=== PATIENT | female | born 1940 | race Caucasian/White ===

== ENCOUNTER → 2017-09-25 | Outpatient (CLI) | payer OTHER ==
[2017-09-25 11:43] LABS: BASOPHILS # (AUTO) 0.1 X10^3/uL (0.0-0.1); BASOPHILS % (AUTO) 0.9 % (0.2-1.0); EOSINOPHILS # (AUTO) 0.1 x10^3/uL (0.0-0.2); EOSINOPHILS % (AUTO) 2.3 % (0.9-2.9); HEMATOCRIT 33.7 % (36.0-47.0); HEMOGLOBIN 11.3 g/dL (12.0-16.0); LYMPHOCYTES # (AUTO) 1.1 X10^3/uL (1.3-2.9); LYMPHOCYTES % (AUTO) 18.5 % (21.0-51.0); MEAN CORPUSCULAR HEMOGLOBIN 31.4 pg (27.0-34.0); MEAN CORPUSCULAR HGB CONC 33.5 g/dL (33.0-35.0); MEAN CORPUSCULAR VOLUME 93.6 fL (80.0-100.0); MEAN PLATELET VOLUME 8.9 fL (7.4-11.0); MONOCYTES # (AUTO) 0.3 x10^3/uL (0.3-0.8); MONOCYTES % (AUTO) 5.5 % (0.0-13.0); NEUTROPHILS # (AUTO) 4.3 x10^3/uL (2.2-4.8); NEUTROPHILS % (AUTO) 72.8 % (42.0-75.0); PLATELET COUNT 236 X10^3/uL (150.0-450.0); RED CELL DISTRIBUTION WIDTH 14.3 % (11.6-16.5)
[2017-09-25 11:54] LABS: ALANINE AMINOTRANSFERASE 56 Units/L (12-78); ALBUMIN 3.5 g/dL (3.4-5.0); ALKALINE PHOSPHATASE 80 Units/L (46-116); ASPARTATE AMINO TRANSFERASE 45 Units/L (15-37); BLOOD UREA NITROGEN 18 mg/dL (7-18); CALCIUM 8.5 mg/dL (8.5-10.1); CARBON DIOXIDE 31.4 mmol/L (21-32); CHLORIDE 101 mmol/L (98-107); CREATININE 1.07 mg/dL (0.55-1.02); SODIUM 138 mmol/L (136-145); TOTAL PROTEIN 7.4 g/dL (6.4-8.2); eGFR BLACK RACES > 60 (>60); eGFR NON BLACK RACES 53 (>60)
--- NOTE | 2017-09-25 12:29 | RAD ---
Indication: Preop for right shoulder surgery Exam: PA and lateral Comparison: Right shoulder series 09/23/2017 Findings: The heart is normal. The pulmonary vessels are normal. No consolidation or effusion is seen . There are extensive metallic fixation devices along the thoracolumbar spine which appear in good po sition. Degenerative changes are seen along the thoracic spine. There is a mildly displaced and commi nuted fracture along the right humeral head and neck region which is unchanged. Impression: Stable chest with no acute pulmonary abnormality seen. Reported By:
[2017-09-25 12:58] LABS: ERYTHROCYTE SEDIMENTATION RATE 85 MM/HOUR (0-20)
[2017-09-25 13:51] LABS: BILIRUBIN,URINE NEGATIVE (NEGATIVE); BLOOD/HEMOGLOBIN,URINE 1+ (NEGATIVE); GLUCOSE, URINE NEGATIVE (NEGATIVE); KETONES,URINE 1+ (NEGATIVE); LEUKOCYTE ESTERASE ,URINE 3+ (NEGATIVE); NITRITES,URINE NEGATIVE (NEGATIVE); PROTEIN,URINE 2+ (NEGATIVE); UROBILINOGEN,URINE 2+ (NORMAL)
--- NOTE | 2017-09-25 13:56 | CT ---
CT OF THE RIGHT SHOULDER WITHOUT CONTRAST Clinical indication: Fall with fracture. Preoperative assessment. Comparison: None. Procedure: Axial images of the right shoulder were obtained. Sagittal coronal reformats were performe d. Dose reduction techniques including Automated Exposure Control (AEC) and adjustment of mA and kV w ere utlized. Findings: Comminuted fracture primarily involving the anatomic neck of the right humerus but also ext ending to involve the greater tuberosity. There is some impaction of the distal humeral shaft into th e humeral head fracture. Small joint effusion. Clavicle and scapula are unremarkable. Glenoid is inta ct. Humeral head appears to be appropriately located within the glenohumeral fossa. Impression: Comminuted humeral head fracture as above. Reported By:
[2017-09-25 14:02] LABS: AMORPHOUS SEDIMENT,UR 1+ /HPF (NEGATIVE); APPEARANCE,URINE SLIGHTLY HAZY (CLEAR); BACTERIA,URINE 1+ /HPF (NEGATIVE); COLOR,URINE YELLOW (YELLOW); RENAL EPITHELIAL CELLS,URINE RARE /HPF (NEGATIVE); SQUAMOUS EPITHELIAL CELL,UR MANY /HPF (NEGATIVE)
[2017-09-25 14:03] LABS: MUCUS,URINE FEW /HPF (NEGATIVE)
== END ==
LOC: RAD 11:04
PROVIDERS: ATTEND Orthopaedic Surgery
DX: Z01.818 Encounter for other preprocedural examination (principal); Z01.810 Encounter for preprocedural cardiovascular examination; Z01.811 Encounter for preprocedural respiratory examination; Z11.8 Encounter for screening for other infectious and parasitic diseases; Z79.899 Other long term (current) drug therapy; Z79.01 Long term (current) use of anticoagulants; R79.82 Elevated C-reactive protein (CRP); R70.0 Elevated erythrocyte sedimentation rate; S42.291A Other displaced fracture of upper end of right humerus, initial encounter for closed fracture; X58.XXXA Exposure to other specified factors, initial encounter
CPT/HCPCS: 36415; 71046; 73200; 80053; 81001; 85025; 85610; 85652; 85730; 86140; 87640; 87641; 93005; 93010

== ENCOUNTER 2017-09-29 08:58 | Day surgery (SDC) | payer OTHER ==
[~2017-09-29 08:58] MED LIST: ANCEF 1 GM IV PREMIX* 1 GM/50 ML BAG IV ONE; D5 LR 1000 ML 1,000 ML IV ONE
[2017-09-29] MEDS ORDERED: MARCAINE 0.5% ONE (10:33)
[2017-09-29] MEDS ORDERED: ADRENALINE CHL INJ ONE (10:33)
[2017-09-29] MEDS ORDERED: BACTROBAN OINT ONE (12:04)
[2017-09-29] MEDS ORDERED: ROBINUL ONE (12:37)
[2017-09-29] MEDS ORDERED: FENTANYL INJ 100 mcg ONE ×2 (12:40→14:34)
[2017-09-29] MEDS ORDERED: ANCEF 1 GM IV PREMIX* 1 GM/50 ML BAG IV ONE (13:41)
[2017-09-29] MEDS ORDERED: NS IRRIGATION 1000 ML 1,000 ML with BACITRACIN VIAL 50,000 UNIT IR ONE ×2 (13:45)
[2017-09-29] MEDS ORDERED: NORCURON INJ 10 MG VIAL ONE (15:39)
[2017-09-29] MEDS ORDERED: XYLOCAINE 2 % (PLAIN) ONE (15:39)
[2017-09-29] MEDS ORDERED: DIPRIVAN VIAL ONE (15:39)
[2017-09-29] MEDS ORDERED: SUPRANE IN ONE (15:39)
[2017-09-29] MEDS ORDERED: VERSED ONE (15:39)
[2017-09-29] MEDS ORDERED: QUELICIN (OR ANECTINE) ONE (15:39)
[2017-09-29] MEDS ORDERED: NEOSTIGMINE INJ ONE (15:39)
[2017-09-29] MEDS: DILAUDID INJ IVP PRN ×3 (16:47→17:10)
[2017-09-29] MEDS ORDERED: ZOFRAN INJ 4 MG VIAL IVP PRN (16:47)
[2017-09-29] MEDS ORDERED: REGLAN INJ 10 MG VIAL IVP PRN (16:47)
[2017-09-29] MEDS ORDERED: PHENERGAN INJ 25 MG IVP PRN (16:47)
[2017-09-29] MEDS ORDERED: BENADRYL INJ 50 MG VIAL IVP PRN (16:47)
[2017-09-29] MEDS: PERCOCET TAB 5/325 MG PO PRN (22:24)
[2017-09-30] MEDS ORDERED: PERCOCET TAB 5/325 MG ONE ×2 (04:39→07:56)
[2017-09-30] MEDS: PERCOCET TAB 5/325 MG PO PRN ×2 (04:44→08:00)
[2017-09-30 06:52] LABS: BASOPHILS % (AUTO) 0.2 % (0.2-1.0); EOSINOPHILS % (AUTO) 0.3 % (0.9-2.9); HEMATOCRIT 28.9 % (36.0-47.0); HEMOGLOBIN 9.9 g/dL (12.0-16.0); LYMPHOCYTES # (AUTO) 0.8 X10^3/uL (1.3-2.9); LYMPHOCYTES % (AUTO) 9.3 % (21.0-51.0); MEAN CORPUSCULAR HEMOGLOBIN 31.4 pg (27.0-34.0); MEAN CORPUSCULAR HGB CONC 34.1 g/dL (33.0-35.0); MEAN PLATELET VOLUME 8.9 fL (7.4-11.0); MONOCYTES # (AUTO) 0.9 x10^3/uL (0.3-0.8); MONOCYTES % (AUTO) 10.4 % (0.0-13.0); NEUTROPHILS # (AUTO) 7.1 x10^3/uL (2.2-4.8); NEUTROPHILS % (AUTO) 79.8 % (42.0-75.0); PLATELET COUNT 257 X10^3/uL (150.0-450.0); RED BLOOD COUNT 3.14 X10^6/uL (3.5-5.4); RED CELL DISTRIBUTION WIDTH 14.6 % (11.6-16.5); WHITE BLOOD COUNT 8.9 X10^3/uL (3.6-10.0)
[2017-09-30 06:54] LABS: BLOOD UREA NITROGEN 17 mg/dL (7-18); CALCIUM 8.3 mg/dL (8.5-10.1); CARBON DIOXIDE 28.1 mmol/L (21-32); CHLORIDE 100 mmol/L (98-107); CREATININE 0.94 mg/dL (0.55-1.02); SODIUM 136 mmol/L (136-145); eGFR BLACK RACES > 60 (>60); eGFR NON BLACK RACES > 60 (>60)
[2017-09-30 08:28] VITALS: BP 140/63
--- NOTE | 2017-10-01 16:34 | OR.GENERIC ---
Post-Op Note Generic - Post-Op Note Operative Report: preoperative diagnosis-RIGHT shoulder proximal humerus fracture, three-part,, unstable,, closed, osteoporotic Postoperative diagnosis-RIGHT shoulder proximal humerus fracture, four-part, closed, unstable, osteoporotic, valgus impacted Procedure-RIGHT shoulder proximal humerus open reduction and internal fixation with plates and screws. Date of surgery-09/29/2017 Implant used-JIA proximal humerus plate locking Indication-patient is a 77-year-old female who had a fall at [place] and landed on her RIGHT shoulder. She noticed severe pain in the RIGHT should shoulder immediately after the fall. She also noticed inability to move the RIGHT upper limb due to severe pain. She went to the emergency room in [place] and x-rays were done which showed a proximal humerus fractures. She was placed in a shoulder immobilizer and asked to follow-up with orthopedic surgeon. She presented to my office with xx-rays. It showed a valgus impacted 3 part fracture. A computed tomography s was ordered and the images were discusse with the family. Natural history and treatment discussions with done with the family. Patient wanted to proceed with surgical intervention. Open reduction and internal fixation versus hemiarthroplasty versus total shoulder reverse arthroplasty was discussed with her and family. She wanted to proceed with open reduction and internal fixation. Patient had an ongoing shoulder problem even before the fall. Symptoms suggested towards a rotator cuff problem. It was brought to the notice of the patient that she might havesome stiffness as well as restricted range of motion due to this shoulder injury. He even after open reduction internal fixation she might continue to have stiffness and pain in the RIGHT shoulde shoulder. Patient as well as the family understood and also verbalized the same. The risks and benefits involved were discussed with the patient and the family. Complications including but not limited to the following were discussed.. Infection, osteomyelitis, axillary nerve injury, deltoid weakness/pparalysis, nonunion, malunion, loss of fixation, avascular necrosis, need for further procedu, stiffness, persistent pain. Patient consented for the procedure. Preoperative- patient was seen in the preoperative holding area. Limb was marked. Patient got the appropriate antibiotic. Patient got a regional upraclavicular block. Again consent was revisited. Procedure-patient was brought to the operating room. Patient was placed supine. Successful endotracheal intubation was completed after general anesthesia was done. Patient placed in about 15 of beachchair position. Patient had a abrasion on the inside aspect of the arm as well as the medial chest. This was isolated with a 10 x 30 drape. The RIGHT upper limp was prepped and draped. An Ioban was applied on the ablation on the medial side of the arm. The rest of the upper limb was again prepped with Ioban. All the gloves were changed. C-arm was brought in from the patient's head side nd AP and lateral images were obtained. A trans deltoid approach was used. An incision about 5 cm was placed on the skin starting from the tip of the acromion. Dissection carried d through the deep tissue to expose the deltoid fibers. A plane developed bet between acromion and spinal fibers. Dissection was carried 5 cm distally. No deltoid was raised off its origin from the acromial. A finger was passed underneath the deltoid distally and axillary nerve was palpated. A distal stay suture was placed to prevent any further propaga propagation of the delto deltoid muscle split. An umbilical tape was placed around the axillary nerve and prote protected throughout the procedure. Another 2 cm of incision was made distally to expose the humeral shaft. The subacromial space was entered and subacromial bursa was excised. Supraspinatus showed a complete tear in the anterior aspect. The fracture pattern was identified. Valgus impacted surgical neck fracture. Greater tuberosity fractured and displaced posteriorly and superiorly.. Lesser tuberosity fractured and fairly nondisplaced. Fracture hematoma was evacuated. Ethibond sutures were placed in the subscapularis and the remainder of supras supraspinatus and infraspinatus. The impaction was reduced with a periosteum elevator. Also reduction was achieved with arm flexed and placed in the axilla pushing the fragment towards reduction. A lobster claw was also placed around the humeral shaft aligning the humeral shaft to the fracture. The heavy Ethibond gagnon sutures were tied to reduce the tuberosities to the humeral head. The shaft was manipulat manipulated to reduce and align the fracture in AP as well as lateral images. The impaction was reduced and the void was filled bone graft. Provisional K wires were placed anteriorly as well as posteriorly from the shaft to the humeral head. A 5 hole plate was chosen and was placed on the lateral aspect posterior to the biceps tendon. Multiple K wires were put through the proximal part. Distally the plate was centrally located on the shaft. A cortical nonlocking screw was placed in the oblong hole. Multiple locking screws were placed in the proximal part of the plate. Multiple images in multiple planes were obtained during the placement of of the screws to confirm that it was not intra-articular. None of the screws were intra-articular. The rest of the screws distal part of the plate were placed in locking and nonlocking . The axillary nerve was again palpated and was found to be superficial to the plate.. Thorough irrigation was was done and the wound was closed in layers.. Sterile dressing was manuel applied. Postprocedure-patient was woken up from the surgery. Successful extubation. Afebrile and stable vitals. Shifted to the PACU. Family updated about the findings. Postoperative images show well aligned fracture as well as well reduced and maintained implant. Postoperative instructions given. Follow-up instructions given.
== END 2017-09-30 10:15 | disposition home or self-care (01) ==
LOC: SURG1 08:58 → OBS 18:36 → SURG1 09-30 10:15
PROVIDERS: ATTEND Orthopaedic Surgery
PROC: 0PSD04Z Reposition Left Humeral Head with Internal Fixation Device, Open Approach (ICD-10-PCS; principal; 2017-09-29 10:15)
DX: S42.291A Other displaced fracture of upper end of right humerus, initial encounter for closed fracture (principal); X58.XXXA Exposure to other specified factors, initial encounter
CPT/HCPCS: 36415; 76000; 80048; 85025; 94760; A4216; A4222; S0020; J0170; J0330; J0690; J1170; J2001; J2250; J2710; J3010; J3490; J7120